=== PATIENT | female | born 1995 | race Caucasian/White ===

== ENCOUNTER 2023-06-28 01:40 | Emergency (ER) | payer MEDICAID, SELFPAY ==
[2023-06-28 01:48] VITALS: PULSE 126; RESP 18; TEMP 37.2; O2SAT 98; BMI 29.9
--- NOTE | 2023-06-28 02:41 | ED_ITS ---
HPI - General Adult General Chief complaint: Cough Stated complaint: sore throat, body aches, coughing, congestion Time Seen by Provider: 06/28/23 02:05 Source: patient Mode of arrival: ambulatory Limitations: no limitations History of Present Illness HPI narrative: 28-year-old female presents the emergency department with myalgias, headache, low-grade fever and cough for right around 24 hours. Awoke with symptoms yesterday. No severe shortness of breath, no hemoptysis, no vomiting. Does feel mildly nauseated. Is still eating and drinking normally. 4-year-old daughter has similar symptoms. Not vaccinated against COVID or influenza this season. No history of smoking or asthma or other chronic respiratory disease. Not immunocompromised. Tried taking Robitussin but no NSAIDs or Tylenol to help with her symptoms. This did not provide any relief. Past medical history benign per her report. No major long-term health problems. No long-term medications or allergies. ROS notable for the generalized, musculoskeletal symptoms as above. Also in doses some mild sore throat and bilateral ear pain with nasal congestion for HEENT and some generalized weakness and fatigue.. Otherwise negative times 12 systems Related Data Home Medications Medication Instructions Recorded Confirmed No Known Home Medications 06/28/23 06/28/23 Allergies Allergy/AdvReac Type Severity Reaction Status Date / Time No Known Allergies Allergy Unknown Verified 06/28/23 01:54 Exam Const: Vital Signs, click to edit/add: Vital Signs - 24 hr 06/28/23 01:48 Temperature 99.0 F Pulse Rate [Pulse Oximeter] 126 H Respiratory Rate 18 Pulse Oximetry 98 Oxygen Delivery Me thod Room Air Documenting provider has reviewed patient's vital signs: yes Common normals: no apparent distress and alert General appearance: cooperative, comfortable and well kempt Orientation/consciousness: Yes awake HENMT: Common normals: normocephalic, TM's normal bilaterally, moist oral mucous membranes and dentition normal Head and scalp: normocephalic Tympanic membrane: TM's normal bilaterally Other: Mild clear mucus rhinorrhea and postnasal drip Eye: Common normals: conjunctivae normal General eye: normal appearance of both eyes Conjunctiva: conjunctiva(e) normal Neck & C-Spine: Common normals: full ROM and no meningeal signs Other: Mild anterior cervical and submandibular lymphadenopathy Resp: Common normals: normal respiratory effort, no use of accessory muscles and clear to auscultation bilaterally Effort & inspection: able to speak in complete sentences Auscultation: clear to auscultation bilaterally Cardio: Common normals: regular rate, regular rhythm, S1 normal heart sound, S2 normal heart sound and no murmurs Rate: regular rate Rhythm: regular rhythm Heart sounds: S1 normal and S2 normal Extremity: Common normals: normal to inspection and no pedal edema Neuro: Sensorium/orientation: awake and alert Meningeal signs: no meningeal signs Speech: speech normal Gait (neuro): normal gait Motor exam: strength 5/5 throughout and no movement abnormalities noted Psych: Appearance: well kempt Activity/motor behavior: appropriate eye contact Mood and affect: euthymic mood Insight: insight good Judgement: judgment good Skin: Common normals: no rashes or lesions noted General skin exam: no rashes or lesions noted Course Course ED Course: Heart rate under 100 at the time my auscultation. Suspect viral syndrome. Most likely influenza or COVID. Awaiting viral swabs. No signs of sepsis, hypoxia, respiratory distress, pneumonia on exam or other signs of severe illness. Will give Toradol 10 mg p.o. x1 and await viral swab results. Reevaluation(s) Reevaluation #1: Nursing team informed patient of swab results. Prior to them coming back, she and I had a discussion regarding sensitivity and specificity of these. She would be interested in Tamiflu or Paxil that if she tests positive. Since she has tested negative, I do not recommend those. Was given written instructions regarding Tylenol, ibuprofen, conservative management and the alarm symptoms that would warrant ED presentation. Work note given for the next 48 hours. Advised to repeat home COVID test in 24 hours. Vital Signs Vital signs: Initial Vital Signs Temperature 99.0 F 06/28/23 01:48 Temperature Source Temporal Artery Scan 06/28/23 01:48 Pulse Rate 126 H 06/28/23 01:48 Respiratory Rate 18 06/28/23 01:48 Pulse Oximetry 98 06/28/23 01:48 Oxygen Delivery Method Room Air 06/28/23 01:48 Vital Signs Temperature 99.0 F 06/28/23 01:48 Pulse Rate 126 H 06/28/23 01:48 Respiratory Rate 18 06/28/23 01:48 Pulse Oximetry 98 06/28/23 01:48 Oxygen Delivery Method Room Air 06/28/23 01:48 Temperature 99.0 F 06/28/23 01:48 Pulse Rate 126 H 06/28/23 01:48 Respiratory Rate 18 06/28/23 01:48 Pulse Oximetry 98 06/28/23 01:48 Oxygen Delivery Method Room Air 06/28/23 01:48 Medications Administered Medications: Discontinued Medications Generic Name Dose Route Start Last Admin Trade Name Ruddy PRN Reason Stop Dose Admin Ketorolac Tromethamine 10 mg 06/28/23 02:40 06/28/23 03:02 Ketorolac 10 Mg Tablet PO 06/28/23 02:41 10 mg ONCE ONE Administration Medical Decision Making Lab Data Lab results reviewed: Yes I reviewed the patient's lab results Lab results narrative: Negative swabs. Labs: Lab Results 06/28/23 Range/Units 02:05 SARS-CoV-2 (PCR) Negative SARS-CoV-2 (Negative) Influenza Type A (PCR) Negative PCR FLU A (Negative) Influenza Type B (PCR) Negative PCR FLU B (Negative) RSV (PCR) Negative PCR RSV (Negative) Discharge Plan Discharge Clinical Impression: Influenza-like illness Patient Disposition: Home, Self-Care Condition: Stable Instructions: Influenza (DC) Additional Instructions: As we discussed, your symptoms are most likely consistent with a viral illness l yoni influenza or COVID. Your swabs are negative today. Unfortunately, the tests are not always accurate and in this case I do not necessarily believe the results. In the 1st 24 hours, the influenza swab can miss over 30% of cases and COVID can be missed about 20% of the time. I would recommend that you repeat home COVID test in 24 hours if you are still symptomatic. Since her swabs are negative, I do not recommend that we start antiviral medications. These will not be prescribed. I do recommend Tylenol 1000 mg every 6 hours and ibuprofen 600 mg every 6 hours for fever, headache and body aches. I would like you to quarantine at home for the next 48 hours. If her COVID swab is positive at home, you should take additional quarantine precautions for a minimum of 5 days total and up to 10 days if you are symptomatic. I will give you a work note to reflect the for 48 hours. At this time, there are no dangerous or emergent signs of illness. If you get severely short of breath, have severe weakness for your unable to care for herself or vomiting that last for more than 12 hours, you should come back to the emergency department. Drink plenty of fluids and slowly increase your activity as you are able. Activity Level: Activity as Tolerated Discharge Diet: Regular Prescriptions: No Action No Known Home Medications Follow Up/Referrals: Provider,Not a Local [Primary Care Provider] - Stand Alone Forms: [facility] Info Instructions
[2023-06-28] MEDS: KETOROLAC 10 MG TABLET PO (03:02)
[2023-06-28 03:07] LABS: PCR FLU A Negative PCR FLU A (Negative); PCR FLU B Negative PCR FLU B (Negative); PCR RSV Negative PCR RSV (Negative); SARS PCR* Negative SARS-CoV-2 (Negative)
== END 2023-06-28 04:15 | disposition home or self-care (01) ==
PROVIDERS: Emergency Provider Family Medicine
DX: J10.1 Influenza due to other identified influenza virus with other respiratory manifestations (principal)
CPT/HCPCS: 87631; 99283; A9270

== ENCOUNTER 2024-03-19 17:44 | Outpatient (CLI) | payer MEDICAID, SELFPAY ==
[2024-03-20 00:32] LABS: Chlamydia DNA Amplified* NOT DETECTED (No Detected); GC DNA Amplified* NOT DETECTED (No Detected)
== END 2024-03-19 17:45 | disposition home or self-care (01) ==
LOC: NFLDUCREF 17:44
PROVIDERS: Visit Provider Family Medicine
DX: R30.0 Dysuria (principal)
CPT/HCPCS: 87086; 87491; 87591

== ENCOUNTER 2024-04-10 08:30 | Emergency (ER) | payer MEDICAID, SELFPAY ==
[2024-04-10 08:35] VITALS: BP 100/67; PULSE 84; RESP 16; TEMP 36.5; O2SAT 100; BMI 30.5
--- NOTE | 2024-04-10 08:54 | ED.GENADULT ---
HPI - General Adult General Time Seen by Provider: 08:54 Date Seen: 04/10/24 Chief complaint: Ear/Nose/Throat Problem Stated complaint: Sore throat Time Seen by Provider: 04/10/24 08:53 Source: patient, RN notes reviewed and old records reviewed (Urgent care note from yesterday reviewed) Mode of arrival: ambulatory Limitations: no limitations History of Present Illness HPI narrative: This 28-year-old female is coming to the ER today with ongoing bilateral sore throat. Her left lower wisdom tooth seems to be more painful today. She had worse left ear pain yesterday, improved today. She does believe she had fevers overnight, felt hot and chilled, does not have a thermometer at home. There is no respiratory symptoms with cough with this, no GI symptoms, no abdominal pain, no nausea or vomiting. She was started on amoxicillin yesterday, did have a negative strep test in urgent care yesterday. She feels like the back of her tongue has some bumps on it today. It is still painful to swallow but she is able to do so. She did take 2 ibuprofen at 2:00 a.m. this morning. She denies a history of tonsillitis before. Related Data Home Medications ?Medication ?Instructions ?Recorded ?Confirmed estradiol 6 mg implant pellet mg subcut 04/09/24 04/09/24 Previous Rx's ?Medication ?Instructions ?Recorded amoxicillin 500 mg tablet 500 mg PO BID 10 days #20 tabs 04/09/24 amoxicillin 875 mg-potassium 1 tab PO BID #20 tabs 04/10/24 clavulanate 125 mg tablet Allergies Allergy/AdvReac Type Severity Reaction Status Date / Time No Known Allergies Allergy Unknown Verified 04/09/24 10:03 Review of Systems Narrative: As per HPI. [facility] PFS Social History Smoking Status: Never smoker How often do you have a drink containing alcohol: never AUDIT-C Alcohol total score: 0 Non-prescribed substance use: denies use Exam Const: Vital Signs, click to edit/add: Vital Signs - 24 hr 04/10/24 08:35 Temperature 97.7 F Pulse Rate [Pulse Oximeter] 84 Respiratory Rate 16 Blood Pressure [Ri ght Upper Arm] 100/67 Pulse Oximetry 100 Oxygen Delivery Me thod Room Air This 28-year-old female is alert, interactive, no apparent distress. Pupils equal round reactive to light, sclera clear, symmetrical facial function. Her pharynx with about 2+ tonsils, there is a little bit of whitish exudate bilaterally in the folds, she still has a good oral airway. Do not see any palatal petechiae, uvula is not swollen. Her papilla near the base of the tongue maybe a little bit more prominent but I do not note anything concerning with the tongue, certainly no significant swelling. There is a little erythema around the medial border of the posterior molar on the left lower side, this is tender when I press with the tongue depressor but there is no fluctuance. Seems to be more of an extension of the erythema and swelling from the tonsillar process. It is not circumferential around the tooth. Mucosa is well-hydrated, no aphthous ulcers, she states she does not have a history of canker sores or aphthous ulcers. Neck is supple, no adenopathy, no masses. Lungs are clear at the bases. CV regular rate and rhythm, no murmur. Abdomen is soft, nontender. Documenting provider has reviewed patient's vital signs: yes Course Course ED Course: Patient is unaware if she has ever had mono before, will do screening Monospot but have discussed with her that this can be negative early on. Will also get a baseline CBC. She does states she did have a negative home COVID test but she has opted to retest here, will do the triple viral swab. Airway looks good, there is no asymmetry, I do not feel that she needs any imaging at this time. Agree that this is certainly tonsillitis. Need to consider viral causes at this point in do agree with retesting for COVID, screening for mono and considering other bacterial causes. I would not recheck strep as it was negative yesterday. This is likely a non streptococcal pharyngitis. Reevaluation(s) Time of Reevaluation #1: 10:17 Reevaluation #1: Have reviewed normal laboratory findings with patient. Discussed her options. She would actually like to increase the antibiotic to Augmentin. I do think this is reasonable. She is requesting Tylenol right now, states her throat does hurt quite a bit. She has no concerning changes for airway compromise or inability to swallow, no asymmetry on clinical evaluation. Think it is reasonable to proceed with escalation of antibiotics to Augmentin, continued outpatient treatment. Will order a 1000 of Tylenol for her. Vital Signs Vital signs: Initial Vital Signs Temperature 97.7 F 04/10/24 08:35 Temperature Source Temporal Artery Scan 04/10/24 08:35 Pulse Rate 84 04/10/24 08:35 Respiratory Rate 16 04/10/24 08:35 Blood Pressure 100/67 04/10/24 08:35 Blood Pressure Mean 78 04/10/24 08:35 Blood Pressure Position Sitting 04/10/24 08:35 Pulse Oximetry 100 04/10/24 08:35 Oxygen Delivery Method Room Air 04/10/24 08:35 Vital Signs Temperature 97.7 F 04/10/24 08:35 Pulse Rate 84 04/10/24 08:35 Respiratory Rate 16 04/10/24 08:35 Blood Pressure 100/67 04/10/24 08:35 Pulse Oximetry 100 04/10/24 08:35 Oxygen Delivery Method Room Air 04/10/24 08:35 Temperature 97.7 F 04/10/24 08:35 Pulse Rate 84 04/10/24 08:35 Respiratory Rate 16 04/10/24 08:35 Blood Pressure 100/67 04/10/24 08:35 Pulse Oximetry 100 04/10/24 08:35 Oxygen Delivery Method Room Air 04/10/24 08:35 Medical Decision Making Lab Data Lab results reviewed: Yes I reviewed the patient's lab results Labs: Lab Results 04/10/24 04/10/24 Range/Units 09:09 09:10 WBC 8.26 (4.50-11.00) K/uL RBC 4.13 (4.00-5.20) m/uL Hgb 12.8 (12.0-16.0) gm/dL Hct 38.7 (33.0-51.0) % MCV 94 (80-100) fL MCH 31 (26-34) pg MCHC 33 (32-36) gm/dL RDW Coeff of Pernell 12.0 (11.5-15.5) % Plt Count 220 (140-440) K/uL Neut % (Auto) 77.7 H (42.0-72.0) % Lymph % (Auto) 11.0 L (20-44) % [place] % (Auto) 10.8 (0.0-11.0) % Eos % (Auto) 0.2 (0.0-7.0) % Baso % (Auto) 0.2 (0.0-3.0) % Neut # (Auto) 6.40 (1.7-7.0) K/uL Lymph # (Auto) 0.90 (0.90-2.90) K/uL [place] # (Auto) 0.90 (0.00-0.90) K/UL Eos # (Auto) 0.02 (0.00-0.50) K/uL Baso # (Auto) 0.02 (0.00-0.30) K/uL Abs Immat Gran (auto) 0.01 (0.00-0.30) K/uL Imm/Tot Granulo (auto) 0.1 % SARS-CoV-2 (PCR) Negative SARS-CoV-2 (Negative) Monoscreen Negative (Negative) Influenza Type A (PCR) Negative PCR FLU A (Negative) Influenza Type B (PCR) Negative PCR FLU B (Negative) RSV (PCR) Negative PCR RSV (Negative) Discharge Plan Discharge Clinical Impression: Acute tonsillitis Qualifiers: Pharyngitis/tonsillitis etiology: unspecified etiology Qualified Code(s): J03.90 - Acute tonsillitis, unspecified Patient Disposition: Home, Self-Care Condition: Stable Instructions: Tonsillitis (ED) Additional Instructions: Switch to Augmentin, quit taking the amoxicillin. Use Tylenol and ibuprofen per bottle directions alternating every 3-4 hours as needed for symptom control. Drink plenty of fluids, appetite for solids will improve as you feel better. If you are not improving in the next couple of days, feel you are worsening at any point, please seek re-evaluation. Activity Level: Activity as Tolerated Discharge Diet: Regular Prescriptions: New amoxicillin-pot clavulanate 875-125 mg tablet 1 tab PO BID Qty: 20 0RF No Action estradiol 6 mg pellet subcut amoxicillin 500 mg tablet 500 mg PO BID 10 Days Qty: 20 0RF Follow Up/Referrals: Provider,Not a Local [Primary Care Provider] - Stand Alone Forms: [facility] Info Instructions
[2024-04-10 09:17] LABS: Basophils Absolute Auto 0.02 K/uL (0.00-0.30); Basophils Percent Auto 0.2 % (0.0-3.0); Eosinophils Absolute Auto 0.02 K/uL (0.00-0.50); Eosinophils Percent Auto 0.2 % (0.0-7.0); Hematocrit 38.7 % (33.0-51.0); Hemoglobin* 12.8 gm/dL (12.0-16.0); Immature Granulocytes Abs Auto 0.01 K/uL (0.00-0.30); Immature Granulocytes Pct Auto 0.1 %; Mean Corpuscular HGB Conc 33 gm/dL (32-36); Mean Corpuscular Hemoglobin 31 pg (26-34); Mean Corpuscular Volume 94 fL (80-100); Monocytes Percent Auto 10.8 % (0.0-11.0); Neutrophils Percent Auto 77.7 % (42.0-72.0); Platelet Count* 220 K/uL (140-440); Red Blood Count 4.13 m/uL (4.00-5.20); White Blood Count* 8.26 K/uL (4.50-11.00)
--- OUTSIDE RECORDS SUMMARY | 2024-04-10 09:19 | XMS_ITS | Clinical Summary ---
Author Organization [facility] & [facility] Address [place], [place] [address] Care Team Providers Care Sales Ledger Clerk Name Role Phone Agata Johnson DO Primary Care Provider +1- [phone] Allergies No known active allergies Medications Medication Sig Dispensed Refills Start Date End Date Status etonogestrel subdermal implant (NEXPLANON) 68 mg implant Inject 1 Device subdermal every 3 years. 12/02/2022 Active Active Problems Problem Noted Date Diagnosed Date Pap smear for cervical cancer screening 01/31/20 24 Overview (01/31/2024): 01/22/2024: NIL/HPV negative Plan: Pap and HPV due 01/2029 Impaired fasting glucose 01/22/2024 Encounters Date Type Department Care Team Description 01/22/2024 11:30 AM CDT Orders Only [address] [id number] Lab, [facility] 01/22/2024 9:00 AM CDT Office Visit [address] [address] Enedina Weaver MD Employee Communications Coordinator Exam 01/22/2024 Travel from Last 3 Months Family History Medical History Relation Name Comments Cancer-breast Paternal Aunt Relation Name Status Comments Paternal Aunt Alive Social History Tobacco Use Types Packs/Day Years Used Date Smoking Tobacco: Never Smokeless Tobacco: Never Tobacco Cessation:Counseling Given: Not Answered Social Connections Answer Date Recorded Do you often feel lonely or isolated from those around you? 0 05/18/2023 Financial Resource Strain Answer Date R ecorded Difficulty of Paying Living Expenses 3 05/18/2023 Difficulty of Paying Living Expenses Not on file 05/18/2023 Food Insecurity Answer Date Recorded Do you worry your food will run out before you are able to buy more? 1 05/18/2023 Transportation Needs Answer Date Record ed Does lack of transportation keep you from medica l appointments? 1 05/18/2023 Does lack of transportation keep you from work, meetings or getting things that you need? 1 05/18/2023 Housing Stability Answer Date Recorded What is your housing situation today? 1 05/18/2023 Sex and Gender Information Value Date Recorded Sex Assigned at Not on file Gender Identity Not on file Sexual Orientation Not on file Obstetrics History Para Term AB IAB SAB Ectopic Multiple Livin g Live Births 4 4 4 4 4 Date Outcome GA Total Labor Labor/3rd Weight Sex Type Anes PTL Namita A1 A5 Name Clin 03/15 Term M C-Sec tion Living [place] 06/10 Term F Living [place] 09/07 Term F Ольга 11/09 Term F Living [place] Last Filed Vital Signs Vital Sign Reading Time Taken Comments Blood Pressure 110/80 01/22/2024 9:11 AM CDT Pulse 84 01/22/2024 9:11 AM CDT Temperature - - Respiratory Rate - - Oxygen Saturation 99% 05/18/2023 11:04 AM STEAM DISTRIBUTION SUPERVISOR Inhaled Oxygen Concentration - - Weight 68 kg (150 lb) 05/18/2023 11:04 AM STEAM DISTRIBUTION SUPERVISOR Height 152 cm (4' 11.84) 05/18/2023 11:04 AM CS T Body Mass Index 29.45 05/18/2023 11:04 AM STEAM DISTRIBUTION SUPERVISOR Plan of Treatment Health Maintenance Due Date Last Done Comments Tdap 2006 Depression screening for age 12+ 2007 HIV for age 15-65 2010 Hepatitis C screening for ag e 18-79 2013 Tetanus booster 2015 COVID-19 vaccine series ( season) 2024 Influenza for age 9-49 02/03/2024 BMI (ht and wt on same day) for age 18+ 05/18/2024 05/18/2023 Pap test for age 21-65 01/21/2029 4, 01/22/2024 Pneumococcal series for age 6-64 Aged Out No longer eligible b ased on patient's age to complete this topic Procedures Procedure Name Priority Date/Time Associated Diagnosis Comments NEW ACCOUNTS REPRESENTATIVE THIN PREP PAP SCREEN IMAGED Routine 01/22/2024 12:27 PM CDT Cervical cancer screening HPV HIGH RISK Routine 01/22/2024 12:27 PM CDT Cervical cancer screening TRICHOMONAS, MOLLY, AND BACTERIAL VAGINOSIS BY JENNA Routine 01/22/2024 12:27 PM CDT Routine general medical examination at a [facility] GLUCOSE, FASTING Routine 01/22/2024 10:3 2 AM CDT Routine general medical examination at a [facility] CBC W PLT NO DIFF Routine 01/22/2024 10: 32 AM CDT Routine general medical examination at a [facility] TSH WITH REFLEX Routine 01/22/2024 10:32 AM CDT Routine general medical examination at a [facility] LIPID PANEL Routine 01/22/2024 10:32 AM CDT Routine general medical examination at a [facility] from Last 3 Months Results * TRICHOMONAS, MOLLY, AND BACTERIAL VAGINOSIS BY JENNA (01/22/2024 12:27 PM CDT) MOLLY SPECIES Negative Negative 4 1:31 PM CDT [facility] MOLLY GLABRATA Negative Negative 01/23/2024 1:31 PM CDT [facility] TRICHOMONAS VVA Negative Negative 4 1:31 PM CDT [facility] BACTERIAL VAGINOSIS Negative Negative 01/23/2024 1:31 PM CDT [facility] Other VAGINAL SWAB / Unknown Non-Blood / Unknown 01/22/2024 12:27 PM CDT 01/22/2024 12:28 PM CDT Enedina Weaver MD MICROBIOLOGY [facility] [address] [place] [address], * NEW ACCOUNTS REPRESENTATIVE THIN PREP PAP SCREEN IMAGED (01/22/2024 12:27 PM CDT) Case Report Gynecologic Cytology Report ? Case: [id number] ? Authorizing Provider: ??Enedina Weaver MD ??Collected: ? 01/22/2024 1227 ? Ordering Location: ? [facility] ?Received: ?01/22/2024 1228 ? Clinic ? First Screen: ?Baccam, Minie ? Specimen: ?NEW ACCOUNTS REPRESENTATIVE ThinPrep Vial Screening, Cervical ? 01/31/2024 2:29 PM CDT [facility]C ENTRAL LABORAT[facility] INTERPRETATION/ RESULT NEGATIVE FOR INTRAEPITHELIAL LESION OR MALIGNANCY (NIL) (none) 01/31/2024 2:29 PM CDT [facility] IMEN ADEQUACY Satisfactory for evaluation Endocervical component present 01/31/2024 2:29 PM CDT [facility] HPV REQUEST HPV and PAP 01/31/2024 2:29 PM CDT [facility] Date of LMP 01/21/2024 01/31/2024 2:29 PM CDT [facility] Last Pap Date >3 years 01/31/2024 2:29 PM CDT [facility] Last Pap Result NIL 2:29 PM CDT [facility] Abnormal Pap or [place] Bx in last 5 years No 01/31/2024 2:29 PM CDT [facility] Menstrual Status Regular Periods 01/31/2024 2:29 PM CDT [facility] [place] Bx Done Today No 01/31/2024 2:29 PM CDT [facility] Additional Information None given 01/31/2024 2:29 PM CDT [facility] Comment: Cytology is screened at [facility] - [address], [place] [address] and [facility] [address] [facility] [place], [place] [address] and [facility] - [address] [place] [address] Interpreted at [facility] - [address], [place] [address] Automated Review Successful 01/31/2024 2:29 PM CDT [facility] Comment:Specimen processed s uccessfully by automated stars analytical lead device, ThinPrep Imaging System, [employer] ANCILLARY TESTING NEW ACCOUNTS REPRESENTATIVE HPV Ordered, Please see separate report 01/31/2024 2:29 PM CDT [facility] Note The pap test is a screening technique, not a diagnostic procedure. It is used primarily to screen for squamous cancers and precursor lesions. Published studies have shown that it is subject to both false negative and false positive results. The pap test should not be used as the sole means to diagnose or exclude pre-malignant and malignant lesions. 01/31/2024 2:29 PM CDT [facility] Other (Cervical) Non-Blood / Unknown 01/22/2024 12:27 PM CDT 01/22/2024 12:28 PM CDT Enedina Weaver MD PATHOLOGY/CYTOLO GY Performing Organization Address [facility]/ZIP Co de Phone Number [facility] [address] [place] [address], * HPV HIGH RISK (01/22/2024 12:27 PM CDT) TYPE 16 Negative Negative 01/25/2024 2:10 PM CDT [facility] TYPE 18 Negative Negative 01/25/2024 2:10 PM CDT [facility] OTHER HIGH RISK TYPES Negative Negative 01/25/2024 2:10 PM CDT [facility] Other (Cervical) Non-Blood / Unknown 01/22/2024 12:27 PM CDT 01/23/2024 3:32 PM CDT Narrative [facility] - 01/25/2024 2:10 PM CDT HPV types 16, 18, 31, 33, 35, 39, 45, 51, 52, 56, 58, 59, 66 and 68 DNA were undetectable or below the pre-set threshold. Methodology: Yakov Fidel 4800 HPV Test Enedina Weaver MD MICROBIOLOGY Performing Organization Address [facility]/ZIP Co de Phone Number [facility] [address] [place] [address], * TSH WITH REFLEX (01/22/2024 10:32 AM CDT) TSH 2.01 0.27 - 4.20 uIU/mL 01/22/2024 11:17 AM CDT [facility] Blood BLOOD SPECIMEN / Unknown Venipuncture / Unknown 01/22/2024 10:32 AM CDT 01/22/2024 10:[address] [facility] - 01/22/2024 11:17 AM CDT In Adults, TSH values between 5.00 and 10.00 uIU/ml do not necessarily indicate the presence of Hypothyroidism. Correlation with clinical findings such as presence of goiter and/or Thyroperoxidase (TPO) Antibody may be helpful. For more information please refer to MARK 2004; 291: 228-238. Enedina Weaver MD CHEMISTRY [facility] [address] [place], [place] [id number] * CBC W PLT NO DIFF (01/22/2024 10:32 AM CDT) WHITE BLOOD COUNT 7.3 4.5 - 11.0 thou/cu mm 01/22/2024 10:54 AM [facility] RED BLOOD COUNT 4.25 4.00 - 5.20 mil/cu mm 01/22/2024 10:54 AM [facility] HEMOGLOBIN 13.8 12.0 - 16.0 g/dL 01/22/2024 10:54 AM [facility] HEMATOCRIT 40.0 33.0 - 51.0 % 01/22/2024 10:54 AM [facility] MCV 94 80 - 100 fL 01/22/2024 10:54 AM [facility] MCH 32.5 26.0 - 34.0 pg 01/22/2024 10:54 AM [facility] MCHC 34.5 32.0 - 36.0 g/dL 01/22/2024 10:54 AM [facility] RDW 12.0 11.5 - 15.5 % 01/22/2024 10:54 AM [facility] PLATELET COUNT 261 140 - 440 thou/cu mm 01/22/2024 10:54 AM [facility] MPV 10.1 6.5 - 11.0 fL 01/22/2024 10:54 AM CDT [facility] Blood BLOOD SPECIMEN / Unknown Venipuncture / Unknown 01/22/2024 10:32 AM CDT 01/22/2024 10:34 AM CDT Enedina Weaver MD HEMATOLOGY Performing Organization Address [facility]/ZIP Co de Phone Number [facility] [address] [place] [address] * (ABNORMAL) GLUCOSE, FASTING (01/22/2024 10:32 AM CDT) GLUCOSE 105(H) 70 - 99 mg/dL 01/22/2024 11:17 AM T [facility] Blood BLOOD SPECIMEN / Unknown Venipuncture / Unknown 01/22/2024 10:32 AM CDT 01/22/2024 10:34 AM CDT Enedina Weaver MD CHEMISTRY Performing Organization Address [facility]/ZIP Co de Phone Number [facility] [address] [place] [address] * (ABNORMAL) LIPID PANEL (01/22/2024 10:32 AM CDT) CHOLESTEROL,TOTAL 137 100 - 199 mg/dL 01/22/2024 11:17 AM [facility] Comment: Cholesterol, Total Reference Ranges Desirable <200 mg/dL Borderline 200-239 mg/dL High >=240 mg/dL TRIGLYCERIDES 66 <150 mg/dL 01/22/2024 11:17 AM [facility] HDL CHOLESTEROL 38(L) >40 mg/dL 11:17 AM [facility] NON-HDL CHOLESTEROL 99 <145 mg/dl 01/22/2024 11:17 AM [facility] CHOL/HDL RATIO 3.61 <4.50 01/22/2024 11:17 AM [facility] LDL CHOLESTEROL 86 <=130 mg/dL 01/22/2024 11:17 AM CDT [facility] VLDL CHOLESTEROL 13 <=30 mg/dL 01/22/2024 11:17 AM CDT [facility] PROVIDER ORDERED STATUS RANDOM 01/22/2024 11:17 AM CDT [facility] Blood BLOOD SPECIMEN / Unknown Venipuncture / Unknown 01/22/2024 10:32 AM CDT 01/22/2024 10:34 AM CDT Enedina Weaver MD CHEMISTRY [facility] [address] [place] [address] from Last 3 Months Care Teams Sales Ledger Clerk Relationship Specialty Start Date End Date Agata Johnson DO [address] [place] [address] PCP - General Family Practice 05/18/23
[2024-04-10 09:21] LABS: Slide Review Reflex No
[2024-04-10 09:33] LABS: Mono Screen* Negative (Negative)
[2024-04-10 09:51] LABS: PCR FLU A Negative PCR FLU A (Negative); PCR FLU B Negative PCR FLU B (Negative); PCR RSV Negative PCR RSV (Negative); SARS PCR* Negative SARS-CoV-2 (Negative)
[2024-04-10] MEDS: ACETAMINOPHEN 500 MG TABLET 1000 MG PO (10:24)
== END 2024-04-10 10:29 | disposition home or self-care (01) ==
PROVIDERS: Emergency Provider Family Medicine
DX: J03.90 Acute tonsillitis, unspecified (principal)
CPT/HCPCS: 36415; 85025; 86308; 87631; 99283; A9270

== ENCOUNTER 2024-07-15 13:35 | Emergency (ER) | payer MEDICAID, SELFPAY ==
--- OUTSIDE RECORDS SUMMARY | 2024-07-15 13:38 | XMS_ITS | Clinical Summary ---
Author Organization [employer] [facility] & [facility] Address [place], [place] [address] Care Team Providers Care Route Agent Name Role Phone ElizabethAgata veliz Primary Care Provider +1- [phone] Allergies No known active allergies Medications etonogestrel subdermal implant (NEXPLANON) 68 mg implant Inject 1 Device subdermal every 3 years. 3 Active Active Problems Problem Noted Date Diagnosed Date Pap smear for cervical cancer screening 01/31/20 24 Overview (01/31/2024): 01/22/2024: NIL/HPV negative Plan: Pap and HPV due 01/2029 Impaired fasting glucose 01/22/2024 Family History Medical History Relation Name Comments [...] is your housing situation today? 1 05/18/2023 Utilities Answer Date Recorded Do you have trouble paying f or utilities (for example, heat, electricity, water, phone)? 1 05/18/2023 Comments No Sex and Gender Information Value Date Recorded Sex Assigned at Not on file Legal Sex Female 10:06 AM PRODUCT PROMOTER RETAIL PET Gender Identity Not on file Sexual Orientation Not on file Obstetrics History Para Term AB IAB SAB Ectopic Multiple Livin g Live Births 4 4 4 4 4 Date Outcome GA Total Labor Labor/2nd/3rd Weight Sex Type Anes PTL Namita A1 A5 Name Clin 03/15 Term M C-Sec tion Living [place] 06/10 Term F Living [place] 09/07 Term F Ольга 11/09 Term F Living [place] Last Filed Vital Signs Vital Sign Reading Time Taken Comments Blood Pressure 110/80 01/22/2024 9:11 AM CDT Pulse 84 01/22/2024 9:11 AM CDT Temperature - - Respiratory Rate - - Oxygen Saturation 99% 05/18/2023 11:04 AM PRODUCT PROMOTER RETAIL PET Inhaled Oxygen Concentration - - Weight 68 kg (150 lb) 05/18/2023 11:04 AM PRODUCT PROMOTER RETAIL PET Height 152 cm (4' 11.84) 05/18/2023 11:04 AM CS T Body Mass Index 29.45 05/18/2023 11:04 AM PRODUCT PROMOTER RETAIL PET Plan of Treatment Health Maintenance Due Date Last Done Comments Tdap 2006 Depression screening for age 12+ 2007 HIV for age 15-65 2010 Hepatitis C screening for ag e 18-79 2013 Tetanus booster 2015 COVID-19 vaccine series ( season) 2024 Influenza for age 9-49 02/03/2024 BMI (ht and wt on same day) for age 18+ 05/18/2024 05/18/2023 Pap test for age 21-65 01/21/2029 , 01/22/2024 Pneumococcal series for age 6-49 Aged Out No longer eligible b ased on patient's age to complete this topic Procedures Procedure Name Priority Date/Time Associated Diagnosis Comments HPV HIGH RISK Routine 01/22/2024 12:27 PM CDT Cervical cancer screening from Last 3 Months or Most Recently Relevant to Health Maintenance Results * HPV HIGH RISK (01/22/2024 12:27 PM CDT) TYPE 16 Negative Negative 01/25/2024 2:10 PM CDT [facility] TYPE 18 Negative Negative 01/25/2024 2:10 PM CDT [facility] OTHER HIGH RISK TYPES Negative Negative 01/25/2024 2:10 PM CDT [facility] Other (Cervical) Non-Blood / Unknown 01/22/2024 12:27 PM CDT 01/23/2024 3:32 PM CDT Narrative [facility] - 01/25/2024 2:10 PM CDT HPV types 16, 18, 31, 33, 35, 39, 45, 51, 52, 56, 58, 59, 66 and 68 DNA were undetectable or below the pre-set threshold. Methodology: Yakov Fidel 4800 HPV Test us Enedina Weaver MD MICROBIOLOGY Final Re sult [facility] [address] [place] [address], from Last 3 Months or Most Recently Relevant to Health Maintenance Insurance [facility] Care Teams Route Agent Relationship Specialty Start Date End Date Agata Johnson DO [address] [place] [address] PCP - General Family Practice 05/18/23
--- NOTE | 2024-07-15 13:44 | ED.GENADULT ---
HPI - General Adult General Chief complaint: Cough Stated complaint: Sore throat, body aches cough Time Seen by Provider: 07/15/24 13:37 History of Present Illness HPI narrative: 29-year-old female with body aches cough sore throat. Family members been sick with COVID. She denies other symptoms. She has not had any immunizations for COVID. She is on estradiol implant. She had COVID and viral studies ordered on presentation. She denies shortness of breath, chest pain, fevers of significance. Has reported some low back aches and some burning in the eyes. Has been eating and drinking adequately, good urine output. As mentioned has been healthy in the past. Related Data Home Medications ?Medication ?Instructions ?Recorded ?Confirmed estradiol 6 mg implant pellet mg subcut 04/09/24 04/09/24 Previous Rx's ?Medication ?Instructions ?Recorded amoxicillin 875 mg-potassium 1 tab PO BID #20 tabs 04/10/24 clavulanate 125 mg tablet Allergies Allergy/AdvReac Type Severity Reaction Status Date / Time No Known Allergies Allergy Unknown Verified 04/09/24 10:03 Review of Systems Status of ROS: Reports: 6 or more systems reviewed and unremarkable except as noted in History and below PFSH PFS Social History Smoking Status: Never smoker How often do you have a drink containing alcohol: never AUDIT-C Alcohol total score: 0 Non-prescribed substance use: denies use Exam Narrative: Exam Narrative: Objective: In general patient apparent distress talks in even unlabored sentences. HEENT is unremarkable mild redness to the throat but no exudate no swelling Neck is supple Chest is clear no rales or wheezing Stream is are no edema neurologic nonfocal good peripheral perfusion noted. Const: Vital Signs, click to edit/add: Vital Signs - 24 hr 07/15/24 13:49 Temperature 98.2 F Pulse Rate [Pulse Oximeter] 81 Respiratory Rate 18 Blood Pressure [Ri ght Upper Arm] 124/93 H Pulse Oximetry 99 Oxygen Delivery Me thod Room Air Course Vital Signs Vital signs: Initial Vital Signs Temperature 98.2 F 07/15/24 13:49 Temperature Source Temporal Artery Scan 07/15/24 13:49 Pulse Rate 81 07/15/24 13:49 Respiratory Rate 18 07/15/24 13:49 Blood Pressure 124/93 H 07/15/24 13:49 Blood Pressure Mean 103 07/15/24 13:49 Pulse Oximetry 99 07/15/24 13:49 Oxygen Delivery Method Room Air 07/15/24 13:49 Vital Signs Temperature 98.2 F 07/15/24 13:49 Pulse Rate 81 07/15/24 13:49 Respiratory Rate 18 07/15/24 13:49 Blood Pressure 124/93 H 07/15/24 13:49 Pulse Oximetry 99 07/15/24 13:49 Oxygen Delivery Method Room Air 07/15/24 13:49 Temperature 98.2 F 07/15/24 13:49 Pulse Rate 81 07/15/24 13:49 Respiratory Rate 18 07/15/24 13:49 Blood Pressure 124/93 H 07/15/24 13:49 Pulse Oximetry 99 07/15/24 13:49 Oxygen Delivery Method Room Air 07/15/24 13:49 Medical Decision Making MDM Narrative Medical decision making narrative: 29-year-old female with body aches cough sore throat. Rule out COVID rule out viral studies, rule out strep. Patient has been healthy in the past will get lab studies as above viral studies, strep test. Disposition with Tylenol and Advil . Will treat with antibiotics if strep is positive. Patient did not appear clinically toxic at this point. Likely will be observed even if she has a viral type infection. Please see addendum. Addendum 2:30 p.m. patient is positive for COVID. Recommend rest, ice lesion so she feels better for the next 3-4 days. Fluids. Tylenol as needed. Lab Data Labs: Lab Results 07/15/24 Range/Units 13:40 SARS-CoV-2 (PCR) POSITIVE SARS-CoV-2 A (Negative) Influenza Type A (PCR) Negative PCR FLU A (Negative) Influenza Type B (PCR) Negative PCR FLU B (Negative) RSV (PCR) Negative PCR RSV (Negative) Group A Strep DNA NOT DETECTED (Not Detectd) Discharge Plan Discharge Clinical Impression: COVID-19 Patient Disposition: Home, Self-Care Condition: Stable Additional Instructions: Rest, fluids, recommend isolation until your better over the next 3-5 days. Wash her hands well. Return if problems or concerns, specifically breathing difficulty or other issues. Activity Level: Light activity Discharge Diet: Regular Prescriptions: No Action estradiol 6 mg pellet subcut amoxicillin-pot clavulanate 875-125 mg tablet 1 tab PO BID Qty: 20 0RF Follow Up/Referrals: Provider,Not a Local [Non-Staff] - Stand Alone Forms: [email or web address] Info Instructions
[2024-07-15 13:49] VITALS: BP 124/93; PULSE 81; RESP 18; TEMP 36.8; O2SAT 99; BMI 28.5
--- OUTSIDE RECORDS SUMMARY | 2024-07-15 14:03 | XMS_ITS | Clinical Summary ---
Author Organization [employer] [facility] & [facility] Address [place], [place] [address] Care Team Providers Care Shoe Salesman Name Role Phone ElizabethAgata veliz Primary Care Provider +1- [phone] Allergies No known active allergies Medications etonogestrel [...] on file Legal Sex Female 10:06 AM TOURIST CAMP ATTENDANT Gender Identity Not on file Sexual Orientation [...] Term F Ольга 11/09 Term F Living [place] Last Filed Vital Signs Vital Sign Reading Time Taken Comments Blood Pressure 110/80 01/22/2024 9:11 AM CDT Pulse 84 01/22/2024 9:11 AM CDT Temperature - - Respiratory Rate - - Oxygen Saturation 99% 05/18/2023 11:04 AM TOURIST CAMP ATTENDANT Inhaled Oxygen Concentration - - Weight 68 kg (150 lb) 05/18/2023 11:04 AM TOURIST CAMP ATTENDANT Height 152 cm (4' 11.84) 05/18/2023 11:04 AM CS T Body Mass Index 29.45 05/18/2023 11:04 AM TOURIST CAMP ATTENDANT Plan of Treatment Health Maintenance Due Date [...] 16 Negative Negative 01/25/2024 2:10 PM CDT [facility] TYPE 18 Negative Negative 01/25/2024 2:10 PM CDT [facility] OTHER HIGH RISK TYPES Negative Negative 01/25/2024 2:10 PM CDT [facility] Other (Cervical) Non-Blood / Unknown 01/22/2024 12:27 PM CDT 01/23/2024 3:32 PM CDT Narrative [facility] - 01/25/2024 2:10 PM CDT HPV types 16, 18, 31, 33, 35, 39, 45, 51, 52, 56, 58, 59, 66 and 68 DNA were undetectable or below the pre-set threshold. Methodology: Yakov Fidel 4800 HPV Test us Enedina Weaver MD MICROBIOLOGY Final Re sult [facility] [address] [place] [address], from Last 3 Months or Most Recently Relevant to Health Maintenance Insurance [facility] Care Teams Shoe Salesman Relationship Specialty Start Date End Date Agata Johnson DO [address] [place] [address] PCP - General Family Practice 05/18/23
[2024-07-15 14:19] LABS: Strep A DNA Probe* NOT DETECTED (Not Detectd)
[2024-07-15 14:32] LABS: PCR FLU A Negative PCR FLU A (Negative); PCR FLU B Negative PCR FLU B (Negative); PCR RSV Negative PCR RSV (Negative); SARS PCR* POSITIVE SARS-CoV-2 (Negative)
== END 2024-07-15 14:45 | disposition home or self-care (01) ==
PROVIDERS: Emergency Provider Family Medicine; PCP Family Medicine
DX: U07.1 COVID-19 (principal)
CPT/HCPCS: 87631; 87651; 99283

== ENCOUNTER 2024-10-11 17:15 | Emergency (ER) | payer OTHER, SELFPAY ==
--- OUTSIDE RECORDS SUMMARY | 2024-10-11 17:16 | XMS_ITS | Clinical Summary ---
Author Organization [facility] Address [address] [place] [address] Care Team Providers Care Salvager Name Role Phone Agata Johnson DO Primary Care Provider +1- [phone] Allergies No known active allergies Medications etonogestrel subdermal implant (NEXPLANON) 68 mg implant Inject 1 Device subdermal every 3 years. 3 Active multivit with iron,minerals (MULTIVITAMIN AND MINERALS ORAL) Take by mouth. Activ e aluminum chloride (Drysol) 20 % external solutionIndicat ions:Excessive sweating Apply topically to affected area(s) at bedtime. 60 mL 1 5 Active cholecalciferol (Vitamin D) 1,000 unit capsuleIndicati ons:Low vitamin D level Take 1 Capsule (1,000 units) by mouth once daily. 100 Capsule 5 Active Active Problems Problem Noted Date Diagnosed Date Pap smear for cervical cancer screening 01/31/20 24 Overview (01/31/2024): 01/22/2024: NIL/HPV negative Plan: Pap and HPV due 01/2029 Impaired fasting glucose 01/22/2024 Encounters Date Type Department Care Team Description 09/15/2024 12:45 PM CDT Office Visit [facility] [address] [place] [address] Agata Johnson DO Hair/Scalp Problem (Loss for 1 year); Perspiration (Hands and underarms sweat) 09/15/2024 Travel from Last 3 Months Immunizations Immunization Administration Dates Next Due INFLUENZA, IIV3 PF (AGE >= 6 MO) 03/19/2024 Family History Medical History Relation Name Comments Cancer-breast Paternal Aunt Relation Name Status Comments Paternal Aunt Alive Social History Tobacco Use Types Packs/Day Years Used Date Smoking Tobacco: Never Smokeless Tobacco: Never Tobacco Cessation:Counseling Given: Not Answered Alcohol Use Standard Drinks/Week Comments Not Currently 0 (1 standard drink = 0.6 oz pur e alcohol) PHQ-2 Answer Date Recorded PHQ-2 TOTAL SCORE 0 09/15/2024 Social Connections Answer Date Recorded Do you [...] on file 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 Gender Identity Not on file Sexual Orientation [...] Term F Ольга 11/09 Term F Living [place] Last Filed Vital Signs Vital Sign Reading Time Taken Comments Blood Pressure 113/75 09/15/2024 12:38 PM CDT Pulse 83 09/15/2024 12:38 PM CDT Temperature - - Respiratory Rate - - Oxygen Saturation 99% 09/15/2024 12:38 PM CDT Inhaled Oxygen Concentration - - Weight 72.6 kg (160 lb) 09/15/2024 12:38 PM CDT Height 152 cm (4' 11.84) 05/18/2023 11:04 AM CS T Body Mass Index 31.41 05/18/2023 11:04 AM LATHE TENDER Plan of Treatment Health Maintenance Due Date Last Done Comments Tdap 2006 HIV for age 15-65 2010 Hepatitis C screening for ag e 18-79 2013 Tetanus booster 2015 COVID-19 vaccine series (2023- season) 2024 BMI (ht and wt on same day) for age 18+ 05/18/2024 05/18/2023 Depression screening for age 12+ 09/15/2025 09/15/2024 Pap test for age 21-65 01/21/2029 4, 01/22/2024 Influenza Vaccine Completed 03/19/2024 Pneumococcal series for age 6-49 Aged Out No longer eligible b ased on patient's age to complete this topic Procedures Procedure Name Priority Date/Time Associated Diagnosis Comments TSH WITH REFLEX Routine 09/15/2024 1:08 PM CDT Weight gain Hair thinning CBC W PLT NO DIFF Routine 09/15/2024 1:0 8 PM CDT Weight gain Hair thinning VITAMIN D 25 (DEFICIENCY) Routine 09/15/2024 1:08 PM CDT Weight gain Hair thinning HPV HIGH RISK Routine 01/22/2024 12:27 PM CDT Cervical cancer screening from Last 3 Months or Most Recently Relevant to Health Maintenance Results * TSH WITH REFLEX (09/15/2024 1:08 PM CDT) TSH W/REFLEX TO FT4 1.42 mIU/L [facility] Comment: Reference Range > or = 20 Years 0.40-4.50 Ranges First trimester 0.26-2.66 Second trimester 0.55-2.73 Third trimester 0.43-2.91 Blood BLOOD SPECIMEN / Unknown 09/15/2024 1:08 PM CDT 09/15/2024 1:10 PM CDT Narrative [facility] - 09/16/2024 4:45 AM CDT FASTING:NO FASTING: NO us Agata Johnson DO CHEMISTRY Final Resu lt Performing Organization Address [facility]/ZIP Co de Phone Number [facility] Wanna [facility] [address] [place] [address], [facility] [address] [facility] [place] [address] * (ABNORMAL) VITAMIN D 25 (DEFICIENCY) (09/15/2024 1:08 PM CDT) Pathologist [facility] VITAMIN D,25-OH,TOTAL,IA 21(L) 30 - 100 ng/mL [employer] tiffany [employer] Comment: Vitamin D Status 25-OH Vitamin D: Deficiency: <20 ng/mL Insufficiency: 20 - 29 ng/mL Optimal: > or = 30 ng/mL For 25-OH Vitamin D testing on patients on D2-supplementation and patients for whom quantitation of D2 and D3 fractions is required, the QuestAssureD(TM) 25-OH VIT D, (D2,D3), LC/MS/MS is recommended: order code 05650 (patients >2yrs). See Note 1 Note 1 For additional information, please refer to http://education.Personal Factory/faq/DNB209 (This link is being provided for informational/ educational purposes only.) Blood BLOOD SPECIMEN / Unknown 09/15/2024 1:08 PM CDT 09/15/2024 1:10 PM CDT Narrative [facility] - 09/16/2024 4:45 AM CDT FASTING:NO FASTING: NO us Agata Johnson DO SEND OUTS Final Resu lt [facility] [address] [place] [address], [place] [phone] [facility] [address] [place] [address] * CBC W PLT NO DIFF (09/15/2024 1:08 PM CDT) [facility] WHITE BLOOD CELL COUNT 9.5 3.8 - 10.8 Thousand/u L [employer] RED BLOOD CELL COUNT 4.23 3.80 - 5.10 Million/uL [employer] HEMOGLOBIN 13.1 11.7 - 15.5 g/dL [employer] HEMATOCRIT 39.5 35.0 - 45.0 % [employer] MCV 93.4 80.0 - 100.0 fL [employer] MCH 31.0 27.0 - 33.0 pg [employer] MCHC 33.2 32.0 - 36.0 g/dL [employer] Comment: For adults, a slight decrease in the calculated MCHC value (in the range of 30 to 32 g/dL) is most likely not clinically significant; however, it should be interpreted with caution in correlation with other red cell parameters and the patient's clinical condition. RDW 12.1 11.0 - 15.0 % [employer] PLATELET COUNT 288 140 - 400 Thousand/u L [employer] MPV 10.7 7.5 - 12.5 fL [employer] Blood BLOOD SPECIMEN / Unknown 09/15/2024 1:08 PM CDT 09/15/2024 1:10 PM CDT Narrative [facility] - 09/16/2024 2:58 AM CDT FASTING:NO FASTING: NO us Agata Johnson DO HEMATOLOGY Final Resu lt [facility] [address] [place] [address], [facility] [facility] [address] [place] [address] * HPV HIGH RISK (01/22/2024 12:27 PM CDT) [facility] TYPE 16 Negative Negative 01/25/2024 2:10 PM CDT [facility] TYPE 18 Negative Negative 01/25/2024 2:10 PM CDT [facility] OTHER HIGH RISK TYPES Negative Negative 01/25/2024 2:10 PM CDT [facility] Other (Cervical) Non-Blood / Unknown 01/22/2024 12:27 PM CDT 01/23/2024 3:32 PM CDT Narrative [facility] - 01/25/2024 2:10 PM CDT HPV types 16, 18, 31, 33, 35, 39, 45, 51, 52, 56, 58, 59, 66 and 68 DNA were undetectable or below the pre-set threshold. Methodology: Yakov Fidel 4800 HPV Test us Enedina Weaver MD MICROBIOLOGY Final Re sult [facility] [address] [place] [address], from Last 3 Months or Most Recently Relevant to Health Maintenance Insurance [facility] Care Teams Salvager Relationship Specialty Start Date End Date Agata Johnson DO [address] [place] [address] PCP - General Family Practice 05/18/23
[2024-10-11 17:19] VITALS: BP 113/78; PULSE 74; RESP 18; TEMP 36.8; O2SAT 98; BMI 28.7
--- NOTE | 2024-10-11 17:42 | ED.GENADULT ---
HPI - General Adult General Chief complaint: Eye Problems Stated complaint: Left eye Irritation Time Seen by Provider: 10/11/24 17:15 History of Present Illness HPI narrative: patient is having right eye itchy, watery, and drainage from eye. started today around 0300. c/o eye to be achy. denies vision issues. 29-year-old young woman presenting to the emergency department with concern of left eye irritation. Began early this morning with some itchiness little watery anus and drainage. No trauma. No fever. No cough cold symptoms otherwise. No history of allergies. Does have some little kids who do attend daycare. No known outbreaks at this point. Had some small crust these this morning in her left eye. No known injury. Apparently presented to pharmacy with concern of ?edna? who noted that they did not have adequate treatment available for her and recommending that she present to the emergency department for further evaluation Related Data Home Medications ?Medication ?Instructions ?Recorded ?Confirmed estradiol 6 mg implant pellet mg subcut 04/09/24 04/09/24 cholecalciferol (vitamin D3) 25 25 mcg PO DAILY 10/11/24 10/11/24 mcg (1,000 unit) capsule Allergies Allergy/AdvReac Type Severity Reaction Status Date / Time No Known Allergies Allergy Unknown Verified 10/11/24 17:23 Review of Systems Status of ROS: Reports: 6 or more systems reviewed and unremarkable except as noted in History and below PFSH PFS Social History Smoking Status: Never smoker How often do you have a drink containing alcohol: never AUDIT-C Alcohol total score: 0 Non-prescribed substance use: denies use Exam Narrative: Exam Narrative: Pleasant. NAD. Skin is warm and dry. There is no rhinorrhea. She is breathing easily. Placed had look atraumatic and. Minimal conjunctival injection in the left eye versus the right. Pupils are briskly reactive. No foreign body appreciated. No discrete swelling appreciated to the eyelids. Const: Vital Signs, click to edit/add: Vital Signs - 24 hr 10/11/24 17:19 Temperature 98.2 F Pulse Rate [Pulse Oximeter] 74 Respiratory Rate 18 Blood Pressure [Ri ght Upper Arm] 113/78 Pulse Oximetry 98 Oxygen Delivery Me thod Room Air Documenting provider has reviewed patient's vital signs: yes Course Vital Signs Vital signs: Initial Vital Signs Temperature 98.2 F 10/11/24 17:19 Temperature Source Temporal Artery Scan 10/11/24 17:19 Pulse Rate 74 10/11/24 17:19 Respiratory Rate 18 10/11/24 17:19 Blood Pressure 113/78 10/11/24 17:19 Blood Pressure Mean 89 10/11/24 17:19 Blood Pressure Position Sitting 10/11/24 17:19 Pulse Oximetry 98 10/11/24 17:19 Oxygen Delivery Method Room Air 10/11/24 17:19 Vital Signs Temperature 98.2 F 10/11/24 17:19 Pulse Rate 74 10/11/24 17:19 Respiratory Rate 18 10/11/24 17:19 Blood Pressure 113/78 10/11/24 17:19 Pulse Oximetry 98 10/11/24 17:19 Oxygen Delivery Method Room Air 10/11/24 17:19 Temperature 98.2 F 10/11/24 17:19 Pulse Rate 74 10/11/24 17:19 Respiratory Rate 18 10/11/24 17:19 Blood Pressure 113/78 10/11/24 17:19 Pulse Oximetry 98 10/11/24 17:19 Oxygen Delivery Method Room Air 10/11/24 17:19 Medical Decision Making MDM Narrative Medical decision making narrative: Unilateral irritation without concern of foreign body suggest more of a benign conjunctivitis. I would focus on symptom relief. Discussed oanf-bpm-wossauo treatment options that might be available. At this point discuss that pharmacy said they did not have these kind of treatments. I placed a call to the pharmacist who noted suspected need for antibiotic ointment/erythromycin. In my opinion this would seem to be wholly excessive given exam, symptoms here today. Inappropriate treatment for viral conjunctivitis. There is no evidence of secondary bacterial involvement here and no history to suggest other inflammatory or rheumatological process. Does not appear to be allergic either. See patient discharge plan for further discussion Can clean with warm moist cloths. Cool compresses might also be relieving. Watch for marked increase in pain, swelling, spreading redness and heat, purulent drainage - this might indicate a bacterial infection. For now I would like you to focus on symptom relief. Would recommend generic or brand name eye ointment to use few times daily and especially before bed or alternatively refresh p.m. eyedrops or Lacri-Lube eye drops. Red eye drops maybe containing glycerin might be also helpful for burning irritation temporarily. Otherwise just practice good hygiene to avoid spreading it about. Medical Records Medical records reviewed: Yes I reviewed the patient's medical records Discharge Plan Discharge Clinical Impression: Conjunctivitis Patient Disposition: Home, Self-Care Condition: Stable Instructions: Conjunctivitis (ED) Additional Instructions: Can clean with warm moist cloths. Cool compresses might also be relieving. Watch for marked increase in pain, swelling, spreading redness and heat, purulent drainage - this might indicate a bacterial infection. For now I would like you to focus on symptom relief. Would recommend generic or brand name eye ointment to use few times daily and especially before bed or alternatively refresh p.m. eyedrops or Lacri-Lube eye drops. Red eye drops maybe containing glycerin might be also helpful for burning irritation temporarily. Otherwise just practice good hygiene to avoid spreading it about. Activity Level: No Restrictions Discharge Diet: Regular Prescriptions: No Action estradiol 6 mg pellet subcut cholecalciferol (vitamin D3) 25 mcg (1,000 unit) capsule 25 mcg PO DAILY Follow Up/Referrals: Zachary Altamirano MD [Primary Care Provider] - Stand Alone Forms: [employer] [facility] Info Instructions
--- OUTSIDE RECORDS SUMMARY | 2024-10-11 18:32 | XMS_ITS | Clinical Summary ---
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 Gender Identity Not on file Sexual Orientation [...] Term F Ольга 11/09 Term F Living [place] Last Filed Vital Signs Vital Sign Reading [...] Body Mass Index 31.41 05/18/2023 11:04 AM FILM DEVELOPING MACHINE OPERATOR Plan of Treatment Health Maintenance Due Date [...] CHEMISTRY Final Resu lt Performing Organization Address [facility]/ZIP Co de Phone Number [facility] [employer] [facility] [address] [place] [address], [facility] [address] [facility] [place] [address] * (ABNORMAL) VITAMIN D 25 (DEFICIENCY) (09/15/2024 1:08 PM CDT) Pathologist [facility] VITAMIN D,25-OH,TOTAL,IA 21(L) 30 - 100 ng/mL [employer] [employer] Comment: Vitamin D Status 25-OH Vitamin D: Deficiency: <20 ng/mL Insufficiency: 20 - 29 ng/mL Optimal: > or = 30 ng/mL For 25-OH Vitamin D testing on patients on D2-supplementation and patients for whom quantitation of D2 and D3 fractions is required, the QuestAssureD(TM) 25-OH VIT D, (D2,D3), LC/MS/MS is recommended: order code 79091 (patients >2yrs). See Note 1 Note 1 For additional information, please refer to http://education.SwapBeats/faq/BGW247 (This link is being provided for informational/ educational purposes only.) Blood BLOOD SPECIMEN / Unknown 09/15/2024 1:08 PM CDT 09/15/2024 1:10 PM CDT Narrative [facility] - 09/16/2024 4:45 AM CDT FASTING:NO FASTING: NO us Agata Johnson DO SEND OUTS Final Resu lt [email or web address] [facility] [address] [place] [address], [place] [phone] [facility] [address] [place] [address] * CBC W PLT NO DIFF (09/15/2024 1:08 PM CDT) [facility] WHITE BLOOD CELL COUNT 9.5 3.8 - 10.8 Thousand/u L [employer] RED BLOOD CELL COUNT 4.23 3.80 - 5.10 Million/uL [employer] HEMOGLOBIN 13.1 11.7 - 15.5 g/dL [employer] HEMATOCRIT 39.5 35.0 - 45.0 % [employer] MCV 93.4 80.0 - 100.0 fL [employer] MCH 31.0 27.0 - 33.0 pg [facility] MCHC 33.2 32.0 - 36.0 g/dL [employer] Comment: For adults, a slight decrease in the calculated MCHC value (in the range of 30 to 32 g/dL) is most likely not clinically significant; however, it should be interpreted with caution in correlation with other red cell parameters and the patient's clinical condition. RDW 12.1 11.0 - 15.0 % [employer] PLATELET COUNT 288 140 - 400 Thousand/u L [employer] MPV 10.7 7.5 - 12.5 fL [employer] Blood BLOOD SPECIMEN / Unknown 09/15/2024 1:08 PM CDT 09/15/2024 1:10 PM CDT Narrative [facility] - 09/16/2024 2:58 AM CDT FASTING:NO FASTING: NO us Agata Johnson DO HEMATOLOGY Final Resu lt [email or web address] [facility] [address] [place] [address], [facility] [address] [place] [address] * HPV HIGH RISK (01/22/2024 12:27 PM CDT) [facility] TYPE 16 Negative Negative 01/25/2024 2:10 PM CDT [facility] TYPE 18 Negative Negative 01/25/2024 2:10 PM CDT [facility] OTHER HIGH RISK TYPES Negative Negative 01/25/2024 2:10 PM CDT [facility] Other (Cervical) Non-Blood / Unknown 01/22/2024 12:27 PM CDT 01/23/2024 3:32 PM CDT Narrative [facility] - 01/25/2024 2:10 PM CDT HPV types 16, 18, 31, 33, 35, 39, 45, 51, 52, 56, 58, 59, 66 and 68 DNA were undetectable or below the pre-set threshold. Methodology: Yakov Fidel 4800 HPV Test us Enedina Weaver MD MICROBIOLOGY Final Re sult [facility] [address] [place] [address], from Last 3 Months or Most Recently Relevant to Health Maintenance Insurance [facility] Care Teams Student Assistance Counselor Relationship Specialty Start Date End Date Agata Johnson DO [address] [place] [address] PCP - General Family Practice 05/18/23
== END 2024-10-11 18:30 | disposition home or self-care (01) ==
LOC: ED 18:30
PROVIDERS: Emergency Provider Family Medicine; PCP Family Medicine
DX: H10.9 Unspecified conjunctivitis (principal)
CPT/HCPCS: 99282; 99283

== ENCOUNTER 2025-06-02 19:42 | Emergency (ER) | payer OTHER, SELFPAY ==
--- OUTSIDE RECORDS SUMMARY | 2025-06-02 19:44 | XMS_ITS | Clinical Summary ---
Author Organization [facility] Address [address] [place] [address] Care Team Providers Care Wood Sawyer Name Role Phone Agata Johnson DO Primary Care Provider +1- [phone] Allergies No known active allergies Medications MedicationSigDispense QuantityRefillsLast FilledStart DateEnd DateStatus etonogestrel subdermal implant (NEXPLANON) 68 mg implant Inject 1 Device subdermal every 3 years.3Active multivit with iron,minerals (MULTIVITAMIN AND MINERALS ORAL) Take by mouth.Active aluminum chloride (Drysol) 20 % external solution Indications:Excessive sweatingApply topically to affected area(s) at bedtime. 60 mL 5Active cholecalciferol (Vitamin D) 1,000 unit capsule Indications:Low vitamin D levelTake 1 Capsule (1,000 units) by mouth once daily. 100 Capsule 5Active Active Problems ProblemNoted DateDiagnosed DatePap smear for cervical cancer ukndjgvzj62/29/2024 Overview (01/31/2024): 01/22/2024: NIL/HPV negative Plan: Pap and HPV due 01/2029 Impaired fasting snruxsd9501/22/2024 Immunizations ImmunizationAdministration DatesNext DueINFLUENZA, IIV3 PF (AGE >= 6 MO) 03/19/2024 Family History Medical HistoryRelationNameCommentsCancer-breastPaternal AuntRelationNameStatus CommentsPaternal AuntAlive Social History Tobacco UseTypesPacks/DayYears UsedDateSmoking Tobacco: NeverSmokeless Tobacco: Never Tobacco Cessation:Counseling Given: Not Answered Alcohol UseStandard Drinks/WeekCommentsNot Currently0 (1 standard drink = 0.6 oz pure alcohol)PHQ-2AnswerDate RecordedPHQ-2 TOTAL [id number] ConnectionsAnswerDate RecordedDo you often feel lonely or isolated from those around you?Financial Resource StrainAnswerDate RecordedDifficulty of Paying Living Bjvmaiqd444/15/2023ifficulty of Paying Living ExpensesNot on file 05/18/2023Food InsecurityAnswerDate RecordedDo you worry your food will run out before you are able to buy more?Transportation NeedsAnswerDate RecordedDoes lack of transportation keep you from medical appointments?1 05/18/2023oes lack of transportation keep you from work, meetings or getting things that you need?Housing StabilityAnswerDate RecordedWhat is your housing situation today?UtilitiesAnswerDate RecordedDo you have trouble paying for utilities (for example, heat, electricity, water, phone)?1 05/18/2023CommentsNoSex and Gender InformationValueDate RecordedSex Assigned at BirthNot on fileLegal JsfRkgujm45/06/2023 10:06 AM CSTGender IdentityNot on fileSexual OrientationNot on file Obstetrics History GravidaParaTermPretermABIABSABEctopicMultipleLivingLive Ifjjdr05115DbsiThrdkkoXU Total LaborLabor/2nd/6ygWwzcsnPzoPdwaExstNHRBayN0F8HzggPcom69/12/2010TermM C-MsryqtvIqseffKtsgcqa00/07/4160WpemCKDKMEzhmpvIdigesv03/06/2020TermFVBACJenesis 11/09/2022TermFVBACLivingAthena Last Filed Vital Signs Vital SignReadingTime TakenCommentsBlood Wgihqiyv716/7504 12:38 PM CDT Wgerg149509/15/2024 12:38 PM CDTTemperature--Respiratory Rate--Oxygen Saturation 99%09/15/2024 12:38 PM CDTInhaled Oxygen Concentration--Nqzquc30.6 kg (160 lb) 09/15/2024 12:38 PM QUILzixxs309 cm (4' 11.84)05/18/2023 11:04 AM CSTBody Mass Index31.41107/19/2022 11:04 AM MOTHER BABY RN Plan of Treatment Health MaintenanceDue DateLast DoneCommentsTetanus szsosjz1705/16/2006HIV for age 15-6505/16/2010Hepatitis C screening for age 18-7905/16/2013Hepatitis B series for 19+ (1 of 3 - 19+ 3-dose series)2014HPV series for age 9-45 (1 - 3- dose SCDM series)2022MI (ht and wt on same day) for age 18+05/18/2024 05/18/2023OVID-19 vaccine series (2024- season)2025Influenza Vaccine (#1)epression screening for age 12+09/15/2025 09/15/2024Pap test for age 21-6509001/22/2024, 01/22/2024neumococcal series for age 6-49Aged OutNo longer eligible based on patient's age to complete this topic Procedures Procedure NamePriorityDate/TimeAssociated DiagnosisCommentsHPV HIGH RISKRoutine 01/22/2024 12:27 PM CDT Cervical cancer screening from Last 3 Months or Most Recently Relevant to Health Maintenance Results * HPV HIGH RISK (01/22/2024 12:27 PM CDT)ComponentValueRef RangeTest Method Analysis TimePerformed AtPathologist SignatureTYPE 16NegativeNegative 01/25/2024 2:10 PM CDTAL[facility]-CENTRAL LABORATORYTYPE 18 HvcgvxmuVyckydwc88/23/2024 2:10 PM CDTAL[facility]-CENTRAL LABORATORYOTHER HIGH RISK WVGREQgpvnsizRrxpmnlj94/23/2024 2:10 PM CDTAL[facility]-CENTRAL LABORATORYSpecimen (Source)Anatomical Location / LateralityCollection Method / VolumeCollection TimeReceived TimeOther (Cervical)Non-Blood / Dwxfyzo0501/22/2024 12:27 PM CDT01/23/2024 3:32 PM CDT Narrative [facility] - 01/25/2024 2:10 PM CDT HPV types 16, 18, 31, 33, 35, 39, 45, 51, 52, 56, 58, 59, 66 and 68 DNA were undetectable or below the pre-set threshold. Methodology: Yakov Fidel 4800 HPV Test Authorizing ProviderResult TypeResult StatusEnedina Weaver MDMICROBIOLOGY Final ResultPerforming OrganizationAddressCity/State/ZIP CodePhone Number [facility] [address] [place] [address], from Last 3 Months or Most Recently Relevant to Health Maintenance Insurance * Guarantor: Magdalena JoelAccount TypeRelation to PatientDate of BirthPhone Billing AddressPersonal/RggpctXlnh[address] [place] [address] Care Teams Team MemberRelationshipSpecialtyStart DateEnd Date Agata Johnson DO [address] [place] [address] PCP - GeneralFamily Ykcpoccj69/15/23
--- NOTE | 2025-06-02 19:55 | ED_ITS ---
HPI - General Adult General Date Seen: 06/02/25 Chief complaint: Chest Pain Stated complaint: Tightness in chest, mucus, fever, weak Time Seen by Provider: 06/02/25 19:44 History of Present Illness HPI narrative: 30-year-old female, who is generally healthy, no history of asthma, heart disease, diabetes, immunosuppression cancer, DVT or PE, presenting to the ER today with concern for chest tightness, nasal congestion, cough, shortness of breath. She has been sick for about 3 days with symptoms that include nasal congestion with copious yellow green rhinorrhea bilaterally as well as body aches, headache, chest tightness, cough. Today much since she woke up she has just been having a little bit of a tight feeling in her chest all day long. 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 She has been using Tylenol and ibuprofen and NyQuil. She is not really coughing up any purulent or bloody sputum. She has had subjective fevers and chills. No swelling in her legs. No recent travel or immobilization. She recently started vaping but has vowed to quit as of today, because of recurrent symptoms. Related Data Home Medications ?Medication ?Instructions ?Recorded ?Confirmed estradiol 6 mg implant pellet mg subcut 04/09/2404/09 cholecalciferol (vitamin D3) 25 25 mcg PO DAILY 10/11/24 mcg (1,000 unit) capsule Allergies Allergy/AdvReac Type Severity Reaction Status Date / Time No Known Allergies Allergy Unknown Verified 10/11/24 17:23 [facility] Social History Smoking Status: Never smoker How often do you have a drink containing alcohol: never AUDIT-C Alcohol total score: 0 Non-prescribed substance use: denies use Exam Narrative: Exam Narrative: Constitutional: Appears well-developed and well-nourished. Alert. Conversant. Non toxic. HENT: Head: Atraumatic. Nose: Externally normal. No significant mucosal edema. She does have fairly copious green rhinorrhea when she blows her nose Mouth/Throat: Oral mucosa is clear . Mucous membranes are moist. no trismus. Pharynx normal. Tonsils symmetric. No tonsillar enlargement, erythema, or exudate. Eyes: Conjunctivae normal. EOM normal. Pupils equal, round, and reactive to light. No scleral icterus. Neck: Normal range of motion. Neck supple. No tracheal deviation present. No JVD. No adenopathy. Cardiovascular: Normal rate, regular rhythm. No gallop. No friction rub. No murmur heard. Symmetric radial artery pulses Pulmonary/Chest: Effort normal. No stridor. No respiratory distress. No wheezes. No rales. No rhonchi . No tenderness. Musculoskeletal: RUE: Normal range of motion. No tenderness. No deformity LUE: Normal range of motion. No tenderness. No deformity RLE: Normal range of motion. No edema. No tenderness. No deformity LLE: Normal range of motion. No edema. No tenderness. No deformity Neurological: Alert and oriented to person, place, and time. Normal strength. CN II-VII intact. No sensory deficit. GCS eye subscore is 4. GCS verbal subscore is 5. GCS motor subscore is 6. Normal coordination Skin: Skin is warm and dry. No rash noted. No pallor. Normal capillary refill. Psychiatric: Normal mood. Normal affect. Polite Const: Vital Signs, click to edit/add: Vital Signs - 24 hr 06/02/25 19:59 06/02/25 21:50 Temperature 97.6 F 97.8 F Pulse Rate [Pulse Oximeter] 88 80 Respiratory Rate 16 16 Blood Pressure [Ri ght Upper Arm] 123/91 H 130/80 Pulse Oximetry 98 98 Oxygen Delivery Me thod Room Air Room Air Course Vital Signs Vital signs: Initial Vital Signs Temperature 97.6 F 06/02/25 19:59 Temperature Source Temporal Artery Scan 06/02/25 19:59 Pulse Rate 88 06/02/25 19:59 Respiratory Rate 16 06/02/25 19:59 Blood Pressure 123/91 H 06/02/25 19:59 Blood Pressure Mean 101 06/02/25 19:59 Blood Pressure Position Sitting 06/02/25 19:59 Pulse Oximetry 98 06/02/25 19:59 Oxygen Delivery Method Room Air 06/02/25 19:59 Vital Signs Temperature 97.6 F 06/02/25 19:59 Pulse Rate 88 06/02/25 19:59 Respiratory Rate 16 06/02/25 19:59 Blood Pressure 123/91 H 06/02/25 19:59 Pulse Oximetry 98 06/02/25 19:59 Oxygen Delivery Method Room Air 06/02/25 19:59 Temperature 97.8 F 06/02/25 21:50 Pulse Rate 80 06/02/25 21:50 Respiratory Rate 16 06/02/25 21:50 Blood Pressure 130/80 06/02/25 21:50 Pulse Oximetry 98 06/02/25 21:50 Oxygen Delivery Method Room Air 06/02/25 21:50 Medications Administered Medications: Discontinued Medications Generic Name Dose Route Start Last Admin Trade Name Freq PRN Reason Stop Dose Admin Oxymetazoline HCl 1 spray 06/02/25 20:09 06/02/25 20:24 Oxymetazoline 0.05% Nasal [place] NOSTRIL-B 1 spray BID PRN Administration Medical Decision Making MDM Narrative Medical decision making narrative: This patient presents for evaluation of cough, fever, nasal congestion ongoing for couple of days as well as some chest tightness throughout the day today. With her chest tightness we did obtain EKG which shows no evidence for pericarditis. Also no evidence for acute coronary syndrome or cardiac ischemia. Given this patient's clinical presentation and age other risk factors risk for ACS is very low. I do not think she needs workup with labs or troponin. Overall, her symptoms do seem consistent with an influenza like illness/ respiratory tract infection. Viral testing positive for influenza A. She has now been sick for 3 or 4 days in his out save the 48 hour window where we would expect much clinical benefit from Tamiflu. She does not have any long-term medical illnesses or cardiopulmonary disease that place her in a high risk category for complications. Using shared decision making we decided to hold on Tamiflu. She is not having any wheezing or bronchospasm on her exam to suggest superimposed asthma attack or viral induced wheezing. no signs at this point of serious bacterial infection such as OM, RPA, epiglottitis, [employer], strep pharyngitis, pneumonia, sinusitis, meningitis, bacteremia, serious bacterial infection. Given clear lungs, fever curve, no hypoxia and no respiratory distress I do not feel a CXR is indicated at this point as the probability of bacterial pneumonia is very unlikely. There are no gastrointestinal symptoms at this point and no signs of dehydration. Close followup with primary care physician is indicated. Return to ED for fever > 103, protracted vomiting, confusion, or other worsening. Lab Data Labs: Lab Results 06/02/25 Range/Units 19:45 SARS-CoV-2 (PCR) Negative SARS-CoV-2 (Negative) Influenza Type A (PCR) POSITIVE PCR FLU A A (Negative) Influenza Type B (PCR) Negative PCR FLU B (Negative) RSV (PCR) Negative PCR RSV (Negative) ECG Data Attestation: I personally reviewed and interpreted this ECG as follows: Interpretation: Normal sinus rhythm Rate: 76 MO: 186 QRS axis: Normal axis. No pathologic Q-waves ST segment/T wave: No ST segment elevation or depression QTc: 411 Discharge Plan Discharge Clinical Impression: Influenza A Patient Disposition: Home, Self-Care Condition: Stable Instructions: Influenza (DC) Additional Instructions: As we discussed, please come back to the ER right away if you have worsening symptoms especially high fever, worsening chest pain or trouble breathing, dehydration, weakness, confusion. Please stay home from work and avoid going to public places until you are feeling better any of been afebrile for 24 hours. Prescriptions: No Action estradiol 6 mg pellet subcut cholecalciferol (vitamin D3) 25 mcg (1,000 unit) capsule 25 mcg PO DAILY Follow Up/Referrals: Zachary Altamirano MD [Primary Care Provider, Emergency Medicine] Stand Alone Forms: [facility], [facility] Inst[facility]
[2025-06-02 19:59] VITALS: BP 123/91; PULSE 88; RESP 16; TEMP 36.4; O2SAT 98; BMI 31.2
[2025-06-02] MEDS: OXYMETAZOLINE 0.05% NASAL SPRAY 1 SPRAY NOSTRIL-B (20:24)
[2025-06-02 20:38] LABS: PCR FLU A POSITIVE PCR FLU A (Negative); PCR FLU B Negative PCR FLU B (Negative); PCR RSV Negative PCR RSV (Negative); SARS PCR* Negative SARS-CoV-2 (Negative)
[2025-06-02 21:50] VITALS: BP 130/80; PULSE 80; RESP 16; TEMP 36.6; O2SAT 98
== END 2025-06-02 21:51 | disposition home or self-care (01) ==
PROVIDERS: Emergency Provider Emergency Medicine; PCP Family Medicine
DX: J10.1 Influenza due to other identified influenza virus with other respiratory manifestations (principal); F17.290 Nicotine dependence, other tobacco product, uncomplicated
CPT/HCPCS: 87631; 93005; 99283; 99284